=== PATIENT | female | born 1990 | race Two or more races ===

== ENCOUNTER 2018-08-02 18:44 | Emergency (ER) | payer SELFPAY ==
[~2018-08-02] VITALS: Ht 154.9 cm; Wt 61.2 kg
[2018-08-02] MEDS ORDERED: IBUPROFEN 600 MG TAB PO ONE (22:30)
[2018-08-02] MEDS ORDERED: TETANUS-DIPTH-ACEL PERTUSSIS 0.5ML SYRG IM ONE (22:30)
[2018-08-02] MEDS ORDERED: HYDROcodone-ACET 10/325MG TAB PO ONE (22:30)
[2018-08-02] MEDS ORDERED: cefTRIAXone SOD 1,000 MG VL IM ONE (22:30)
[2018-08-02 22:40] VITALS: BP 105/66
[2018-08-02] MEDS ORDERED: AMOXICILLIN/CLAVUL 875 MG TAB PO ONE (22:45)
[2018-08-02] MEDS ORDERED: SILVER SULFADIAZINE 1 % TOPICAL CREAM 50GM TOP ONE (22:45)
== END 2018-08-03 00:02 | disposition home or self-care (01) ==
LOC: ER 18:56
DX: T20.20XA Burn of second degree of head, face, and neck, unspecified site, initial encounter (principal); X10.1XXA Contact with hot food, initial encounter; Y93.89 Activity, other specified; Y99.0 Civilian activity done for income or pay; Y92.89 Other specified places as the place of occurrence of the external cause
CPT/HCPCS: 90471; 90715; 96372; 99284; J0696

== ENCOUNTER 2018-08-04 07:51 | Emergency (ER) | payer OTHER ==
[~2018-08-04] VITALS: Ht 152.4 cm; Wt 61.2 kg
[2018-08-04 08:03] VITALS: BP 105/49
== END 2018-08-04 08:32 | disposition home or self-care (01) ==
LOC: ER 07:51
DX: T20.20XD Burn of second degree of head, face, and neck, unspecified site, subsequent encounter (principal); Z90.49 Acquired absence of other specified parts of digestive tract; X58.XXXD Exposure to other specified factors, subsequent encounter

== ENCOUNTER 2018-10-23 17:12 | Emergency (ER) | payer MEDICAID, OTHER ==
[2018-10-23 19:45] LABS: Urine Amorphous Crystal FEW /hpf (None Seen); Urine Bacteria NONE SEEN /hpf (None Seen); Urine Blood Negative /uL (Negative); Urine Specific Gravity 1.009 (1.001-1.035); Urine WBC 1 /hpf (0 - 5)
[2018-10-23 22:09] VITALS: BP 116/80
== END 2018-10-23 23:00 | disposition home or self-care (01) ==
LOC: ER 17:13
DX: O26.891 Other specified pregnancy related conditions, first trimester (principal); Z3A.01 Less than 8 weeks gestation of pregnancy
CPT/HCPCS: 81001; 81025